=== PATIENT | male | born 1975 | race Caucasian/White ===

== ENCOUNTER 2019-01-27 15:01 | Emergency (ER) | payer MEDICAID ==
[~2019-01-27] VITALS: Ht 188 cm; Wt 89.8 kg
[2019-01-27] MEDS ORDERED: KETOROLAC TROMETH 60MG/2ML VIAL IM ONE (19:45)
[2019-01-27 20:37] LABS: Urine Bacteria NONE SEEN /hpf (None Seen); Urine Blood Negative /uL (Negative); Urine Mucus FEW (None Seen); Urine WBC 2 /hpf (0 - 3)
[2019-01-27 20:38] LABS: Basophils # (auto) 0.1 uL; Basophils % (auto) 0.7 % (0.0-2.0); Eosinophils # (auto) 0.2 uL; Eosinophils % (auto) 2.1 % (0.0-7.0); Hematocrit 45.5 % (41.0-53.0); Hemoglobin 15.7 g/dL (13.5-17.5); Lymphocytes # (auto) 2.6 uL; Lymphocytes % (auto) 29.7 % (10.0-50.0); Mean Corpuscular Hemoglobin 30.8 pg (28.0-32.0); Mean Corpuscular Hgb Conc. 34.4 g/dL (32.0-36.0); Mean Corpuscular Volume 89.4 fL (80.0-100.0); Monocytes # (auto) 0.6 uL; Monocytes % (auto) 6.8 % (0.0-12.0); Neutrophils # (auto) 5.3 uL; Neutrophils % (auto) 60.7 % (37.0-80.0); Nucleated Red Blood Cells % 0.1 %; Platelet Count (auto) 194 10^3/uL (140-450); Red Blood Cells 5.09 10^6/uL (4.5-5.90); Red Cell Distribution Width 14.1 % (11.8-14.3); White Blood Cell 8.7 10^3/uL (4.4-10.8)
[2019-01-27 20:52] LABS: Alanine Aminotransferase 32 U/L (16-61); Albumin 3.3 g/dL (3.4-5.0); Anion Gap 7 (5-15); Aspartate Aminotransferase 19 U/L (15-37); BUN/Creatinine Ratio 9.2; Blood Urea Nitrogen 9 mg/dL (7-18); Calcium 8.4 mg/dL (8.5-10.1); Carbon Dioxide 24 mmol/L (21-32); Chloride 111 mmol/L (98-107); GFR African American 108 mL/min; GFR Non-African American 89 mL/min; Glucose 84 mg/dL (74-106); Lipase 136 U/L (73-393); Potassium 3.8 mmol/L (3.5-5.1); Sodium 142 mmol/L (136-145)
[2019-01-27 20:56] LABS: Alkaline Phosphatase 108 U/L (45-117); Bilirubin, Total 0.4 mg/dL (0.2-1.0); Total Protein 6.6 g/dL (6.4-8.2)
[2019-01-27] MEDS ORDERED: BACLOFEN 10 MG TAB PO ONE (21:30)
[2019-01-27 22:40] VITALS: BP 131/74
== END 2019-01-27 23:06 | disposition home or self-care (01) ==
LOC: ER 15:25
DX: S33.5XXA Sprain of ligaments of lumbar spine, initial encounter (principal); M62.838 Other muscle spasm; X58.XXXA Exposure to other specified factors, initial encounter; Y93.89 Activity, other specified; Y92.89 Other specified places as the place of occurrence of the external cause; Y99.8 Other external cause status
CPT/HCPCS: 36415; 72100; 76775; 80053; 81001; 83036; 83690; 84484; 85025; 96372; 99284; J1885

== ENCOUNTER 2019-06-13 11:50 | Emergency (ER) | payer MEDICAID ==
[~2019-06-13] VITALS: Ht 188 cm; Wt 90.3 kg
[2019-06-13 12:20] VITALS: BP 129/81
== END 2019-06-13 13:22 | disposition home or self-care (01) ==
LOC: ER 11:51
DX: K02.9 Dental caries, unspecified (principal)

== ENCOUNTER 2019-07-21 14:02 | Emergency (ER) | payer MEDICAID ==
[~2019-07-21] VITALS: Ht 188 cm; Wt 94.8 kg
[2019-07-21 15:22] VITALS: BP 108/82
[2019-07-21] MEDS ORDERED: KETOROLAC TROMETH 60MG/2ML VIAL IM ONE (16:45)
== END 2019-07-21 17:33 | disposition home or self-care (01) ==
LOC: ER 14:02
DX: M25.521 Pain in right elbow (principal); W18.39XA Other fall on same level, initial encounter; Y93.89 Activity, other specified; Y92.89 Other specified places as the place of occurrence of the external cause; Y99.8 Other external cause status
CPT/HCPCS: 73080; 96372; 99283; J1885

== ENCOUNTER 2020-02-13 14:28 | Emergency (ER) | payer MEDICAID ==
[~2020-02-13] VITALS: Ht 188 cm; Wt 91.2 kg
[2020-02-13 15:00] VITALS: BP 103/77
[2020-02-13] MEDS ORDERED: KETOROLAC TROMETH 60MG/2ML VIAL IM ONE (16:30)
== END 2020-02-13 16:46 | disposition home or self-care (01) ==
LOC: ER 14:28
DX: S43.402A Unspecified sprain of left shoulder joint, initial encounter (principal); X50.9XXA Other and unspecified overexertion or strenuous movements or postures, initial encounter; Y93.89 Activity, other specified; Y92.89 Other specified places as the place of occurrence of the external cause; Y99.8 Other external cause status
CPT/HCPCS: 73030; 96372; 99283; J1885

== ENCOUNTER 2020-08-26 15:28 | Emergency (ER) | payer MEDICAID ==
[~2020-08-26] VITALS: Ht 188 cm; Wt 99.8 kg
[2020-08-26 17:43] VITALS: BP 134/80
[2020-08-26] MEDS ORDERED: ACETAMINOPHEN 500 MG TAB PO ONE (18:00)
== END 2020-08-26 18:21 | disposition home or self-care (01) ==
LOC: ER 15:28
DX: G44.319 Acute post-traumatic headache, not intractable (principal); F41.9 Anxiety disorder, unspecified; F32.9 Major depressive disorder, single episode, unspecified; Z88.1 Allergy status to other antibiotic agents; Z88.6 Allergy status to analgesic agent; X50.1XXA Overexertion from prolonged static or awkward postures, initial encounter; Y93.89 Activity, other specified; Y92.89 Other specified places as the place of occurrence of the external cause; Y99.8 Other external cause status
CPT/HCPCS: 70450